=== PATIENT | female | born 1985 | race Caucasian/White ===

== ENCOUNTER 2020-10-18 18:42 | Emergency (ER) | payer SELFPAY ==
[2020-10-18 18:43] VITALS: BP 138/90; PULSE 72; RESP 18; TEMP 36.6; O2SAT 100; BMI 33.6
== END 2020-10-18 20:47 | disposition left against medical advice (07) ==
PROVIDERS: Emergency Provider Emergency Medicine; PCP Internal Medicine
DX: R10.2 Pelvic and perineal pain (principal); M54.5 Low back pain; R11.0 Nausea
CPT/HCPCS: 99282

== ENCOUNTER 2024-06-01 22:17 | Emergency (ER) | payer MEDICAID, SELFPAY ==
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
[2024-06-01 22:44] VITALS: BP 132/88; PULSE 94; RESP 18; TEMP 36.6; O2SAT 97; BMI 37.3
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
[2024-06-02] MEDS: Amoxicillin/Potassium Clav 875 MG TABLET PO (01:00)
[2024-06-02] MEDS: Diphth,Pertus(ACell),Tet Adult 0.5 ML SYRINGE IM (01:00)
[2024-06-02] MEDS: Acetaminophen 325 MG TABLET 975 MG PO (01:06)
[2024-06-02 01:19] VITALS: BP 130/74; PULSE 86; RESP 16; TEMP 36.8; O2SAT 98
== END 2024-06-02 01:20 | disposition home or self-care (01) ==
PROVIDERS: Emergency Provider Emergency Medicine Emergency Medical Services; PCP Internal Medicine
DX: S61.254A Open bite of right ring finger without damage to nail, initial encounter (principal); S41.151A Open bite of right upper arm, initial encounter; L03.113 Cellulitis of right upper limb; Y04.1XXA Assault by human bite, initial encounter; Y93.89 Activity, other specified; Y92.89 Other specified places as the place of occurrence of the external cause; Y99.8 Other external cause status; Z23 Encounter for immunization
CPT/HCPCS: 73140; 90471; 90715; 99284